=== PATIENT | female | born 1970 | race Asian ===

== ENCOUNTER 2018-05-29 14:56 | Outpatient (CLI) | payer OTHER ==
--- NOTE | 2018-05-30 09:51 | Mammography Report ---
BILATERAL DIGITAL AUGMENTED SCREENING MAMMOGRAM with CAD: 05/29/18 14:56:00 CLINICAL: Routine screening. COMPARISON:05/27/14 FINDINGS: Screening views with and without implant displacement demonstrate heterogeneously dense breasts, which may obscure small masses. No mass, architectural distortion or suspicious calcifications. Intact subpectoral implants. IMPRESSION: No mammographic evidence of malignancy. BI-RADS CATEGORY: 2 -- Benign RECOMMENDATION: Routine mammographic screening in one year. ACR BI-RADS MAMMOGRAPHIC CODES: 0 = Needs additional imaging evaluation; 1 = Negative; 2 = Benign; 3 = Probably benign; 4 = Suspicious; 5 = Malignant; 6 = Known biopsy-proven malignancy COMMENT: 1. Dense breast tissue, i.e., adenosis, fibrocystic changes, etc., may obscure an underlying neoplasm. 2. Approximately 10% of cancers are not detected with mammography. 3. A negative mammography report should not delay biopsy if a clinically suspicious mass is present. COMMENT: Patient follow-up letters are generated via our [employer] application.
== END 2018-05-29 14:57 | disposition home or self-care (01) ==
LOC: SPVWC 14:56
PROVIDERS: ATTEND Family Medicine
DX: Z12.31 Encounter for screening mammogram for malignant neoplasm of breast (principal)
CPT/HCPCS: 77067

== ENCOUNTER 2021-03-28 10:41 | Outpatient (CLI) | payer BC ==
--- NOTE | 2021-03-28 11:47 | Mammography Report ---
DIGITAL SCREENING MAMMOGRAM WITH CAD, 03/28/2021 CLINICAL INFORMATION / INDICATION: Routine screening mammography. SCREENING MAMMO AUG TECHNIQUE: Digital bilateral 2D mammography was obtained in the craniocaudal and mediolateral obliqu e projections. This examination was interpreted with the benefit of Computer-Aided Detection analysis . COMPARISON: 05/29/18. FINDINGS: Breast Density: The breasts are heterogeneously dense, which may obscure small masses. No dominant mass, suspicious calcifications, or architectural distortion in either breast. There are bilateral subpectoral silicone implants. No new abnormality is seen. IMPRESSION: No mammographic evidence of malignancy. Follow up recommendation: Routine yearly BI-RADS Category 2: Benign. A "normal" or negative report should not discourage follow up or biopsy of a clinically significant f inding. A written summary of these findings will be mailed to the patient. The patient will be entered into a mammography reporting system which will generate a reminder letter for the patient's next appointmen t at the appropriate interval. The [employer] recommends yearly mammograms starting at age 40 and continuing as l lizette as a woman is in good health. Breast MRI is recommended for women with an approximate 20-25% or greater lifetime risk of breast cancer, including women with a strong family history of breast or ova jeanie cancer or who have been treated for Hodgkin's disease. Signer Name: Gilbert Hayward MD Signed: 03/28/2021 11:43 AM Workstation Name: [id number]
== END 2021-03-28 10:42 | disposition home or self-care (01) ==
LOC: SPVWC 10:41
PROVIDERS: ATTEND Internal Medicine
DX: Z12.31 Encounter for screening mammogram for malignant neoplasm of breast (principal); N64.89 Other specified disorders of breast
CPT/HCPCS: 77067